=== PATIENT | female | born 1955 | race African-American/Black ===

== ENCOUNTER 2019-07-15 12:01 | Emergency (ER) | payer OTHER ==
[2019-07-15 12:34] VITALS: BP 130/76; PULSE 66; TEMP 97.9; BMI 30.8
--- NOTE | 2019-07-15 13:05 | PDOC ---
History of Present Illness - General Chief Complaint: Injury Stated Complaint: INJURY Time Seen by Provider: 07/15/19 12:37 History Source: Patient Exam Limitations: Clinical Condition - History of Present Illness Initial Comments: 07/15/19 13:03 Patient with no significant past medical history present with complaint of pain to distal aspect of right ring finger over nail bed status post accidentally dropping finger in a wheelchair for patient this morning. Patient reported she was moving back her wheelchair and accidentally got his finger stuck in side of wheelchair. Patient reported mild pain to nailbed and distal tip of right ring finger. Denies numbness or tingling sensation. Denies any other symptoms Occurred: reports: just prior to arrival Past History - Past Medical History Allergies/Adverse Reactions: Allergies Allergy/AdvReac Type Severity Reaction Status Date / Time No Known Allergies Allergy Verified 07/15/19 12:30 Home Medications: Ambulatory Orders Ibuprofen 400 mg PO Q8H PRN #20 tablet 07/15/19 - Psycho Social/Smoking Cessation Hx Smoking History: Never smoked Hx Alcohol Use: No Drug/Substance Use Hx: No Review of Systems - Review of Systems Able to Perform ROS?: Yes Is the patient limited Vietnamese proficient: No Constitutional: No: Malaise, Weakness HEENTM: No: Symptoms Reported, See HPI, Eye Pain, Blurred Vision, Tearing, Recent change in vision, Double Vision, Cataracts, Ear Pain, Ocular Prothesis, Ear Discharge, Nose Pain, Nose Congestion, Tinnitus, Nose Bleeding, Hearing Loss , Throat Pain, Throat Swelling, Mouth Pain, Dental Problems, Difficulty Swallowing, Mouth Swelling, Other Respiratory: No: Symptoms reported, See HPI, Cough, Orthopnea, Shortness of Breath, SOB with Exertion, SOB at Rest, Stridor, Wheezing, Productive cough, Hemoptysis, Other Musculoskeletal: Yes: Symptoms Reported, See HPI, Muscle Pain (nailbed of right ring finger) Integumentary: No: Symptoms Reported, Bruising, Change in Color All Other Systems: Reviewed and Negative *Physical Exam - Vital Signs Last Vital Signs Temp Pulse Resp BP Pulse Ox 97.9 F 66 18 130/76 99 07/15/19 12:32 07/15/19 12:32 07/15/19 12:32 07/15/19 12:32 07/15/19 12:32 - Physical Exam 07/15/19 13:05 GENERAL: Well developed, well nourished. Awake and alert. No acute distress. CARDIOVASCULAR: Regular rate and rhythm. No murmurs, rubs, or gallops. PULMONARY: No evidence of respiratory distress. Lungs clear to auscultation bilaterally. No wheezing, rales or rhonchi. ABDOMINAL: Soft. Non-tender. Non-distended. No rebound or guarding. No organomegaly. Normoactive bowel sounds MUSCULOSKELETAL : mild tenderness to no pain of distal phalange of right ring finger. No ecchymosis or swelling to finger. No visible deformity. No damage to fingernail. SKIN: Warm and dry. Normal capillary refill. No rashes. No jaundice. NEUROLOGICAL: Alert, awake, appropriate. No motor deficits in the lower extremities. Gait is normal without ataxia. PSYCHIATRIC: Cooperative. Good eye contact. Appropriate mood and affect. General Appearance: Yes: Nourished, Appropriately Dressed. No: Apparent Distress HEENT: positive: Normal ENT Inspection Neck: positive: Supple Respiratory/Chest: negative: Respiratory Distress, Accessory Muscle Use Cardiovascular: positive: Regular Rhythm, Regular Rate Musculoskeletal: positive: Normal Inspection, Other (mild tenderness to nailbed of right ring finger. no visible swelling or deformity) Extremity: positive: Normal Inspection, Normal Range of Motion Integumentary: positive: Normal Color. negative: Swelling, Ecchymosis, Bruising Neurologic: positive: Fully Oriented, Normal Response, Motor Strength 5/5 ED Treatment Course - RADIOLOGY Radiology Studies Ordered: Category Date Time Status FINGER(S) RIGHT [RAD] Stat Radiology 07/15/19 12:59 Ordered Medical Decision Making - Medical Decision Making 07/15/19 13:04 Patient with no significant past medical history present with complaint of pain to distal aspect of right ring finger over nail bed status post accidentally dropping finger in a wheelchair for patient this morning. Patient reported she was moving back her wheelchair and accidentally got his finger stuck in side of wheelchair. Patient reported mild pain to nailbed and distal tip of right ring finger. Denies numbness or tingling sensation. Denies any other symptoms Exam significant for mild tenderness to no pain of distal phalange of right ring finger. No ecchymosis or swelling to finger. No visible deformity. No damage to fingernail. Symptoms likely finger strain versus less likely fracture. X-ray ordered to rule out fracture 07/15/19 13:23 X-ray of right ring finger shows no acute fracture or dislocation. Patient symptoms likely finger sprain. Motrin 60 mg p.o. ordered for pain. Patient stable for discharge take Motrin as needed for pain and apply hot compress to finger as needed with PCP follow-up Discharge - Discharge Information Problems reviewed: Yes Clinical Impression/Diagnosis: Sprain of finger, right Qualifiers: Encounter type: initial encounter Finger: ring finger Sprain of finger site: unspecified site Qualified Code(s): S63.614A - Unspecified sprain of right ring finger, initial encounter Condition: Stable Disposition: HOME - Admission No - Additional Discharge Information Prescriptions: Ibuprofen 400 mg PO Q8H PRN #20 tablet PRN Reason: pain - Follow up/Referral - Patient Discharge Instructions Patient Printed Discharge Instructions: DI for Finger Sprain Additional Instructions: X-ray of your finger shows no fracture or dislocation. Your pain is likely from finger sprain. Take Motrin as needed for pain. Apply cold compress today and switch to hot compress tomorrow as needed for pain. Follow-up with PCP as needed - Post Discharge Activity Work/Back to School Note: Back to Work
[2019-07-15] MEDS ORDERED: IBUPROFEN 600 MG TABLET (FP) PO ONE ×2 (13:25→13:26)
== END 2019-07-15 13:57 | disposition home or self-care (01) ==
LOC: JERFT 12:01
DX: S63.614A Unspecified sprain of right ring finger, initial encounter (principal); W23.0XXA Caught, crushed, jammed, or pinched between moving objects, initial encounter; Y93.F9 Activity, other caregiving; Y92.128 Other place in nursing home as the place of occurrence of the external cause; Y99.0 Civilian activity done for income or pay
CPT/HCPCS: 73140-TC-RT-FY; 99283-25